=== PATIENT | male | born 1960 | race Caucasian/White ===

== ENCOUNTER 2023-04-23 06:52 | Day surgery (SDC) | payer MEDICAID ==
[~2023-04-23] VITALS: Ht 160 cm; Wt 59.0 kg
[2023-04-23] MEDS ORDERED: MEPERIDINE 100 MG INJ. 100 MG/ML VIAL ONE (08:06)
[2023-04-23] MEDS ORDERED: MIDAZOLAM HCL 5 MG/5 ML VIAL ONE (08:07)
[2023-04-23 09:10] VITALS: O2SAT 97
[2023-04-23 11:40] VITALS: BP_SYST 107; PULSE 64; RESP 16
== END 2023-04-23 11:00 | disposition home or self-care (01) ==
LOC: SMU 06:52 → SOR 06:52
PROVIDERS: ATTEND Student in an Organized Health Care Education/Training Program
DX: K92.1 Melena (principal); D12.5 Benign neoplasm of sigmoid colon; K62.1 Rectal polyp; K64.8 Other hemorrhoids; K52.9 Noninfective gastroenteritis and colitis, unspecified; K59.09 Other constipation; Z86.73 Personal history of transient ischemic attack (TIA), and cerebral infarction without residual deficits; Z87.891 Personal history of nicotine dependence
CPT/HCPCS: 45380; 45385; 99152; 88305; 99153; G0378; J2250; J2175